=== PATIENT | female | born 1965 | race Caucasian/White ===

== ENCOUNTER → 2018-04-02 | Outpatient (CLI) | payer OTHER ==
[~2018-04-02] MED LIST: DIFLUCAN150 MG PO; DOXYCYCLINE 10100 MG PO; FLEXERIL PO; HYDROCODONE-APA1 TA1 PO; LORTAB 5 MG/5001 TA1 PO; NEXIUM40 MG; ZOLOFT100 MG
--- NOTE | 2018-04-08 12:05 | PATH ---
[address] [address] PATHOLOGY RPT PROCEDURE Name: CHANTE ROWE Room: JESSICA Frey#: [id number] Admission: 04/02/18 Date of : 69 Discharge: Report #: [id number] Path Case #: [id number] [facility] Accession Number: [id number] . 01 Material submitted: . RIGHT BREAST . 01 Clinical history: . 0.38 x 0.44 x 0.98 cm mass . 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 - Negative for malignancy. (MAP:[employer]; 04/03/2018) MBR/04/03/2018 . 02 Comment: Co-review with Dr. Menchaca. . (MAP:[facility] [place]; 04/03/2018) . 02 Electronically signed: . Jordan Monsalve MD, Pathologist NPI- [id number] . 01 Gross description: . Received in formalin labeled "Chante Rowe, right breast BX, 6:00, 1 cm FN," are multiple needle cores of yellow-ortega fibrofatty tissue measuring 3.1 x 1.6 x 0.5 cm in aggregate dimensions. The tissue submitted in its entirety in cassette A1 through A3. The cold ischemic time is 2 minutes. The total formalin fixation time is 11 hours and 32 minutes. (TSD; 04/02/2018) TOB/TOB . 02 Pathologist provided ICD-10: D24.1, N60.31 . 02 CPT . 331055 Specimen Comment: A courtesy copy of this report has been sent to Specimen Comment: [phone], , , . Specimen Comment: Report sent to ,DR FARLEY,DR GERONIMO / DR ALEMAN Specimen Comment: A duplicate report has been generated due to demographic updates. Performed at: 01 [place] [address] PATHOLOGY RPT PROCEDURE Name: CHANTE ROWE Room: [facility] Tk#: [id number] Admission: 04/02/18 Date of : 69 Discharge: Report #: [id number] Path Case #: [id number] [address] [facility] [address], [place], [place] [id number] MD Gabino Lazaro MD Phone: [phone] Performed at: 02 [facility] [address], [place], [place] [id number] MD Rome Aceves MD Phone: [phone]
== END | disposition home or self-care (01) ==
LOC: M.ULTRA 09:36
DX: D24.1 Benign neoplasm of right breast (principal); N60.31 Fibrosclerosis of right breast; R92.1 Mammographic calcification found on diagnostic imaging of breast; Z98.890 Other specified postprocedural states; Z79.899 Other long term (current) drug therapy

== ENCOUNTER → 2019-03-29 | Outpatient (CLI) | payer OTHER | LOC: M.RAD 06:45 | DX: Z12.31 Encounter for screening mammogram for malignant neoplasm of breast (principal) ==